=== PATIENT | female | born 1995 | race African-American/Black ===

== ENCOUNTER 2021-01-07 02:19 | Emergency (ER) | payer MEDICAID ==
[~2021-01-07] VITALS: Ht 170.2 cm; Wt 109.0 kg
[2021-01-07 02:35] VITALS: BP 163/102
== END 2021-01-07 02:59 | disposition home or self-care (01) ==
LOC: ER 02:19
DX: Z04.89 Encounter for examination and observation for other specified reasons (principal); Z90.49 Acquired absence of other specified parts of digestive tract
CPT/HCPCS: 99281